=== PATIENT | female | born 1935 | race Caucasian/White ===

== ENCOUNTER 2017-02-19 17:22 | Observation (INO) | payer MEDICARE, OTHER ==
[~2017-02-19] VITALS: Ht 162.6 cm; Wt 73.3 kg
[2017-02-19] VITALS (12 sets, daily range): BP systolic 151–231; BP diastolic 81–157; PULSE 69–90; RESP 14–22; O2SAT 93–97
[~2017-02-19 17:22] MED LIST: ACET325T51 PO; ALBU2.5V4 IH; BISA10SU9 RC; BISA5TAB8 PO; CALC500T3 PO; CHOL200049 PO; COD28PAS TOP; CRAN400C PO; DIPH25CA6 PO; DOCU250C2 PO; FURO-129 PO; LOSA50TA37 PO; MAG770OR3 PO; MAGN400O4 PO; METO50TA3 PO; MULT1CAP33 PO; MYCC TOP; NA P133E23 RC; POLY17PO6 PO; POTA10CA42 PO; SENN8.6C6 PO; SODI51CR8 DT; TRAZ-115 PO; WARF2.5T82 PO; WARF3TAB PO; [UNRECOGNIZED DRUG - CODE] PO
[2017-02-19] MEDS ORDERED: 0.9% Sodium Chloride 1,000 ML IV ONE (17:31)
--- NOTE | 2017-02-19 17:33 | ED.REPORT ---
HPI-Stroke / CVA Feb 19, 2017 ED Provider: Calderon Farooq MD Pt is an 81 y/o female anticoagulated on Warfarin w/ a hx of prev R cerebellar CVA in 2012, HTN, HLD, severe dementia, PE, a-fib, stage IV lymphoma reportedly in remission presenting to the ED via EMS due to multiple stroke symptoms onset 6-8 hours ago. The patient was observed to be listing to the left, gazing to the right, with left-sided facial droop and left arm and leg weakness. She has also not been following commands properly. Further history unable to be obtained secondary to current condition. Nursing Notes Stated Complaint: STROKE Chief Complaint: Neuro Symptoms/ Deficits Nursing Notes Reviewed: Yes Allergies: Coded Allergies: Penicillins (Verified Allergy, Severe, Hives, 11/03/14) strawberry (Verified Allergy, Severe, hives, 11/03/14) Sulfa (Sulfonamide Antibiotics) (Verified Allergy, Unknown, 11/03/14) lisinopril (Verified Allergy, Unknown, 11/03/14) sulfamethoxazole (Verified Adverse Reaction, Intermediate, 11/03/14) trimethoprim (Verified Adverse Reaction, Intermediate, 11/03/14) Scheduled Ascorbate Calcium (Vitamin C) 500 Mg Tablet 500 MG PO DAILY (Reported) Calcium Carbonate (Tums) 500 Mg Tab.chew 1,000 MG PO TID (Reported) Cholecalciferol (Vitamin D3) (Vitamin D3) 2,000 Unit Capsule 2,000 UNIT PO DAILY (Reported) Cranberry (Cranberry) 400 Mg Capsule 400 MG PO BID (Reported) For UTI prpphylaxis Furosemide (Lasix) 20 Mg Tablet 20 MG PO DAILY Loratadine (Loratadine) 10 Mg Capsule 10 MG PO DAILY (Reported) Losartan Potassium (Losartan Potassium) 50 Mg Tablet 50 MG PO BID (Reported) Metoprolol Tartrate (Metoprolol Tartrate) 50 Mg Tablet 50 MG PO BID (Reported) Multivitamin (Multivitamins) 1 Each Capsule 1 EACH PO DAILY (Reported) Polyethylene Glycol 3350 (Miralax) 17 Gm Powd.pack 17 GM PO DAILY (Reported) Potassium Chloride (Potassium Chloride) 10 Meq Capsule.er 20 MEQ PO DAILY TAKE WITH FOOD Trazodone (Trazodone) 50 Mg Tablet 50 MG PO HS (Reported) Warfarin Sodium (Warfarin Sodium) 2.5 Mg Tablet 2.5 MG PO S, T, W, F (Reported) Warfarin Sodium (Coumadin) 3 Mg Tablet 3 MG PO M, Th, S (Reported) Scheduled PRN Acetaminophen (Acetaminophen) 325 Mg Tablet 650 MG PO Q4 PRN PRN For Pain ( Reported) If no relief from Bisacodyl tablet. Albuterol Neb Soln (Albuterol Neb Soln) 2.5 Mg/3 Ml Vial.neb 2.5 MG IH Q4-6H PRN PRN For Wheezing (Reported) Alprazolam (Alprazolam) 0.25 Mg Tablet 0.25 MG PO TID PRN PRN For Anxiety ( Reported) Bisacodyl (Dulcolax) 5 Mg Tablet.dr 10 MG PO DAILY PRN PRN For Constipation ( Reported) Bisacodyl (Dulcolax Rectal) 10 Mg Supp.rect 10 MG RC DAILY PRN PRN For Constipation (Reported) Cod Liver Oil/Zinc Oxide (Desitin Diaper Rash 40% Paste) 28 Gm Paste..g. 1 APPLIC TOP PRN PRN PRN For Itching (Reported) Use each time with diaper change Docusate Sodium (Docusate Sodium) 250 Mg Capsule 250 MG PO DAILY PRN PRN For Constipation (Reported) Mag Hydrox/Al Hydrox/Simeth (Mag-Al Liquid) 30 Ml Susp 30 ML PO QID PRN PRN For Dyspepsia or Heartburn (Reported) Na Phos,M-B/Na Phos,Di-Ba (Fleet Enema) 133 Ml Enema 133 ML RC Q3 days PRN PRN For Constipation (Reported) diphenhydrAMINE HCl (Benadryl) 25 Mg Capsule 25 MG PO Q6 PRN PRN For Itching ( Reported) General Time Seen by Provider: 17:34 Chief Complaint Weakness Left-sided Hx Obtained From: EMS Arrived By: Ambulance Time last known well About 09:30 Sudden in Onset?: No (unknown) Progression Since Onset: Unchanged Risk Factors tPA considered, but patient outside window. )( TPA Administration/Criteria Stroke Thrombolytic Therapy : TPA Considered: Yes TPA Administered Intravenously: No, not indicated Past Medical History Past Medical History 1. Hypertension. 2. Dyslipidemia. 3. Advanced dementia. 4. History of right cerebellar cerebrovascular accident in November of 2012. 5. Pulmonary embolism back in November 2012. 6. Atrial fibrillation, diagnosed in November 2012. 7. 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 Past Surgical History Status post ovarian cyst removal in 1972. Recent left hip intertrochanteric fracture in mid December of this year. Reports: Appendectomy Family History Reviewed, not relevant Smoking History Never Smoker Social History Alcohol Use: Denies alcohol use Drug Use: Denies drug use Review of Systems Unable to Obtain ROS Mental status Physical Exam Nursing note and vitals reviewed. Constitutional: Elderly female lying in bed. Not diaphoretic. Head: Normocephalic and atraumatic. Mouth/Throat: Oropharynx is clear and moist. No oropharyngeal exudate. Eyes: EOM are normal. Right pupil 4 mm and reactive to light, left pupil 2 mm and reactive to light Neck: Supple, no tracheal deviation. Cardiovascular: Normal rate, regular rhythm. Equal and intact distal pulses throughout. Trace peripheral edema Pulmonary/Chest: Effort normal and breath sounds normal. No respiratory distress. Abdominal: Soft. No distension. There is no tenderness, rebound, or guarding. Musculoskeletal: Trace peripheral edema. Neurological: She will grasp my wrist when I ask her to squeeze my hands equally. Will not follow any other commands. Withdraws to pain. Appears to have normal muscle tone with exception of contracture of left hand. Is awake. Making fist with right hand and moving right foot. Unable to assess visual elliott secondary to patient cooperation Left-sided facial droop present Unable or unwilling to hold R arm, L arm, R leg, L leg off bed Unable to assess ataxia Withdraws to pain on both right and left hands and feet Global aphasia with only very occasional single words spoken Unable to assess dysarthria Is favoring right side with some inattention to the left Skin: Warm and dry, no rashes or pallor appreciated. Psychiatric: Unable to assess Initial Vital Signs Vital Signs (First) Date Time Temp Pulse Resp B/P Pulse Ox O2 Delivery O2 Flow Rate FiO2 02/19/17 17:35 78 15 159/141 94 Room Air Initial VS: Reviewed, Vital signs abnormal Interpretation & Diagnostics Interpretation & Diagnostics: CTA head/neck: IMPRESSION: 1. No acute intracranial process. 2. Moderate to severe atrophy and chronic microvascular ischemic changes. 3. Mild prominence of the ventricular system in relation to gyral sulcal atrophy. This could represent a central atrophy pattern versus normal pressure hydrocephalus and clinical correlation is recommended. 4. No areas of acute hemodynamically significant stenosis, vascular occlusion or aneurysmal dilation within the anterior circulation. 5. No areas of hemodynamically significant stenosis, vascular occlusion or aneurysmal dilation within the posterior circulation. 6. No areas of hemodynamically significant stenosis, vascular occlusion or aneurysmal dilation within the neck vasculature. Dictated by: Olesya Lunsford M.D. on 02/19/2017 at 18:27 Approved by: Olesya Lunsford M.D. on 02/19/2017 at 18:36 Lab Results Interpretation Result Diagram: 02/21/17 0515 02/21/17 0515 Test 02/19/17 17:50 Activated Partial Thromboplast Time 37.2sec (22.8-33.0) Troponin T < 0.010ug/L (0.0-0.011) Hold Balderrama Top Tube Received (Received) CT Head Interpretation FINDINGS: Image quality: Excellent. CSF spaces: Basal cisterns are patent. No extra-axial fluid collections. The ventricles are enlarged and unchanged. Brain: No intracranial bleeds or masses. There is cerebral volume loss for age, with resultant ventricular and sulcal prominence. There are periventricular and deep white matter chronic small vessel ischemic changes. There is intracranial internal carotid artery atherosclerosis. Old right cerebellar ischemia. Old right lacunar focus of ischemia is noted in the external capsule. Skull and face: Calvarium and visualized facial bones appear intact, without suspicious lesions. Sinuses: Visualized sinuses and mastoids are clear. IMPRESSION: 1. No acute intracranial process. 2. Moderate to severe atrophy and chronic microvascular ischemic changes. 3. Ventricular system is prominent, out of proportion to gyral and sulcal atrophy. Findings may be related to more central atrophy pattern versus normal pressure hydrocephalus. Clinical correlation is recommended. The above findings were discussed with Dr. Calderon Farooq on 02/19/17 at 5:38 PM. This study fulfills neurological imaging criteria for inclusion or exclusion of acute stroke therapies based on available published neurological guidelines. Dictated by: Olesya Lunsford M.D. on 02/19/2017 at 17:38 Approved by: Olesya Lunsford M.D. on 02/19/2017 at 17:40 Study: Head CT no contrast Interpretation / Wet Read by: Interpret - Radiologist, Discussed w radiologist Re-Eval/Medical Decision Med Decision/Clinical Course In summary, 81-year-old female presenting to the ED for evaluation of acute onset of left-sided weakness and some altered mental status that started at approximately 9:30 AM today. Unable to obtain history from the patient secondary to her mental status. Unable to adequately perform NIH stroke scale as patient has dementia at baseline and is unable to cooperate with the exam; an estimate would be in excess of 30- please see neurologic exam above. Upon arrival to the ED, patient taken emergently to the CT scanner to evaluate for hemorrhagic stroke. This was negative. I contacted the [place] neurology stroke team as noted below; they did not feel that the patient would be a good candidate for TPA or other intervention at this time, primarily given time of onset as being greater than 4.5 hours from arrival. Laboratory studies notable for creatinine 1.19, negative troponin, white blood cell count 11.7 with 14.9% monocytes. INR 1.92. EKG reviewed, demonstrates sinus rhythm with a first-degree AV block, right bundle branch block and left anterior fascicular block. Initial head CT negative for acute hemorrhagic stroke. CT angio head and neck with moderate to severe atrophy and chronic microvascular ischemic changes, mild prominence of the ventricular system, no areas of acute hemodynamically significant stenosis, vascular occlusion, or aneurysmal dilation within the anterior, posterior, or neck circulation. Plan admission for further evaluation and management of this presumed CVA pending MRI and rest of stroke evaluation. Discussed at length with the patient 's . Consultation : Consulted With: Neurology Call Returned at: 17:48 Leach Cell Operator: Agrees with eval, Agrees with plan Note: Case discussed with [place] neurologists. Due to her not being a candidate for tPA or interventional radiology procedure, tele-stroke is not indicated. Counseled Regarding: Diagnosis, Lab results, Need for admission Patient Discharge & Departure Impression: Primary Impression: Acute CVA (cerebrovascular accident) Disposition: ADMITTED TO HOSPITAL Discharge Condition All VS Reviewed: Yes Condition: Stable Crit Care Except Billable Proc Time Spent: 75-104 minutes Services Performed: Patient management by me, Time spent at bedside, Reviewing test results, Reviewing imaging, Discussing patient care, Documentation in record Critical Care Notes: Please see VIET. Lyssaibnay Attestation Portions of this note were transcribed by Aguilar Coulter. I, Dr. Farooq personally performed the history, physical exam and medical decision-making; I reviewed and confirmed the accuracy of the information in the transcribed note. Signed by Alonso Urban, 02/19/17 - 1800 Calderon Farooq MD Feb 19, 2017 17:33 AGUILAR COULTER Feb 19, 2017 17:40 Dictated by: Olesya Lunsford M.D. on 02/19/2017 at 17:38 Approved by: Olesya Lunsford M.D. on 02/19/2017 at 17:40 Study: Head CT no contrast Interpretation / Wet Read by: Interpret - Radiologist, Discussed w radiologist Re-Eval/Medical Decision Consultation : Consulted With: Neurology Call Returned at: 17:48 Leach Cell Operator: Agrees with eval, Agrees with plan Note: Case discussed with [place] neurologists. Due to her not being a candidate for tPA or interventional radiology procedure, tele-stroke is not indicated. Counseled Regarding: Diagnosis, Lab results, Need for admission Patient Discharge & Departure Impression: Primary Impression: Acute CVA (cerebrovascular accident) Disposition: ADMITTED TO HOSPITAL Discharge Condition All VS Reviewed: Yes Condition: Stable Crit Care Except Billable Proc Time Spent: 75-104 minutes Services Performed: Patient management by me, Time spent at bedside, Reviewing test results, Reviewing imaging, Discussing patient care, Documentation in record Scribe Attestation Portions of this note were transcribed by Aguilar Coulter. I, Dr. Farooq personally performed the history, physical exam and medical decision-making; I reviewed and confirmed the accuracy of the information in the transcribed note. Signed by Alonso Urbna, 02/19/17 - 1799 Calderon Farooq MD Feb 19, 2017 17:33 AGUILAR COULTER Feb 19, 2017 17:40
--- NOTE | 2017-02-19 17:42 | DRSVH ---
PROCEDURE: CT BRAIN (TPA) ([id number]) INDICATIONS: Stroke TECHNIQUE: Noncontrast 4.5 mm thick angled axial sections acquired from the foramen magnum to the vertex, with c oronal reformats. COMPARISON: [facility], CT, BRAIN W/O CONTRAST, 12/04/2012, 15:14. FINDINGS: Image quality: Excellent. CSF spaces: Basal cisterns are patent. No extra-axial fluid collections. The ventricles are enlarg ed and unchanged. Brain: No intracranial bleeds or masses. There is cerebral volume loss for age, with resultant vent ricular and sulcal prominence. There are periventricular and deep white matter chronic small vessel ischemic changes. There is intracranial internal carotid artery atherosclerosis. Old right cerebell ar ischemia. Old right lacunar focus of ischemia is noted in the external capsule. Skull and face: Calvarium and visualized facial bones appear intact, without suspicious lesions. Sinuses: Visualized sinuses and mastoids are clear. IMPRESSION: 1. No acute intracranial process. 2. Moderate to severe atrophy and chronic microvascular ischemic changes. 3. Ventricular system is prominent, out of proportion to gyral and sulcal atrophy. Findings may be re lated to more central atrophy pattern versus normal pressure hydrocephalus. Clinical correlation is r ecommended. The above findings were discussed with Dr. Calderon Farooq on 02/19/17 at 5:38 PM. This study fulfills neurological imaging criteria for inclusion or exclusion of acute stroke therapie s based on available published neurological guidelines. Dictated by: Olesya Lunsford M.D. on 02/19/2017 at 17:38 Approved by: Olesya Lunsford M.D. on 02/19/2017 at 17:40
[2017-02-19 18:08] LABS: BASOPHILS % (AUTO) 0.8 % (0-3); MONOCYTES % (AUTO) 14.9 % (4-12); Mean Corpuscular Hemoglobin 28.2 pg (27.0-35.0); Mean Corpuscular Volume 88.5 fL (81-100); NEUTROPHILS % (AUTO) 59.3 % (40-74); Platelet Count 286 bil/L (150-400)
[2017-02-19 18:20] LABS: INR 1.92 ratio
[2017-02-19 18:27] LABS: TROPONIN T < 0.010 ug/L (0.0-0.011)
--- NOTE | 2017-02-19 18:38 | DRSVH ---
PROCEDURE: CT ANGIO BRAIN NECK TPA INDICATIONS: STAT READ - CALL ED PROVIDER W/RESULTS TECHNIQUE: Pre-contrast 4.5 mm thick sections acquired from the foramen magnum to the vertex. After the adminis tration of intravenous contrast, 1 mm thick sections acquired from the aortic arch through the [place] of [place]. Post-contrast 4.5 mm thick sections then re-acquired from the foramen magnum to the vert ex. 3-dimensional vrriysl-yckmeygpf-ygxtilxenr (MIP) and/or volume rendering reformats were acquired of the central intracranial vasculature and neck separately. For radiation dose reduction, the foll owing was used: automated exposure control, adjustment of mA and/or kV according to patient size. COMPARISON: [facility], CT, BRAIN (TPA), 02/19/2017, 17:33. [facility], MR, STROKE PROTOCOL (PNL), 12/02/2012, 12:11. FINDINGS: Image quality: Excellent. BRAIN: The ventricular system and cortical sulci demonstrate atrophy, consistent for the patient's stated ag e. There is a mild ventricular prominence, out of proportion to gyral and sulcal atrophy. There are a reas of hypodensity within the periventricular and subcortical white matter. There is no acute intra -or extra axial fluid collection. No acute hemorrhage, mass lesion or midline shift. Brainstem is unr emarkable. Globes are symmetrical. Sinuses are aerated. Osseous structures are intact. HEAD CT ANGIOGRAPHY: Anterior circulation: Intracranial internal carotid arteries are normal in size and flow. The flow within the paired anterior cerebral arteries is normal and symmetric. The flow within the middle cer ebral arteries is unchanged compared to prior exam. There is definitive visualization of the left mid dle cerebral artery through the M2 segment with prominent collateral vasculature distally. This is un changed compared to 12/02/12. The anterior communicating artery is seen. No aneurysms are seen. Posterior circulation: Visualized portions of the vertebral arteries demonstrate normal caliber, and join to form a normal appearing basilar artery. Flow within the posterior cerebral arteries is norm al and symmetric. No aneurysms are seen. NECK CT ANGIOGRAPHY: Carotid system: The great vessels demonstrate a bovine arch, consistent with variant anatomy as they arise from the aortic arch. The origins of the common carotid arteries appear patent. The common c arotid arteries demonstrate normal caliber and courses. The bifurcation regions are both widely flores nt. The internal carotid arteries demonstrate normal calibers and courses. Scattered calcifications are present along the distal aspect of the common carotid and proximal internal carotid arteries gary aterally without hemodynamically significant stenosis. Posterior circulation: The origins of the vertebral arteries both appear widely patent. The more ibrahim perior extracranial portions of both vertebral arteries also demonstrate normal courses and calibers. They join to form a normal appearing basilar artery. Soft tissues: Visualized neck soft tissues demonstrate no suspicious abnormalities. Bones: No suspicious bony lesions. Visualized cervical spine appears normally aligned. IMPRESSION: 1. No acute intracranial process. 2. Moderate to severe atrophy and chronic microvascular ischemic changes. 3. Mild prominence of the ventricular system in relation to gyral sulcal atrophy. This could represen t a central atrophy pattern versus normal pressure hydrocephalus and clinical correlation is recommen ded. 4. No areas of acute hemodynamically significant stenosis, vascular occlusion or aneurysmal dilation within the anterior circulation. 5. No areas of hemodynamically significant stenosis, vascular occlusion or aneurysmal dilation within the posterior circulation. 6. No areas of hemodynamically significant stenosis, vascular occlusion or aneurysmal dilation within the neck vasculature. Dictated by: Olesya Lunsford M.D. on 02/19/2017 at 18:27 Approved by: Olesya Lunsford M.D. on 02/19/2017 at 18:36
[2017-02-19] MEDS ORDERED: LORA10CA9 PO (18:41)
[2017-02-19] MEDS ORDERED: ALPR0.254 PO (18:45)
[2017-02-19] MEDS ORDERED: ASCO-294 PO (18:46)
[2017-02-19] MEDS ORDERED: BISA10SU61 RC (18:47)
[2017-02-19] MEDS ORDERED: BISA-67 PO (18:47)
[2017-02-19] MEDS ORDERED: CHOL200047 PO (18:48)
[2017-02-19] MEDS ORDERED: CALC500T9 PO (18:48)
[2017-02-19] MEDS ORDERED: [UNRECOGNIZED DRUG - CODE] PO (18:50)
[2017-02-19] MEDS ORDERED: Labetalol 5 mg/mL 20 mL Inj IV ONE (19:00)
[2017-02-19] MEDS ORDERED: Labetalol 5 mg/mL 4 mL Inj IVPUSH PRN (20:45)
[2017-02-19] MEDS ORDERED: Alum-Mag Hydrox-Simeth 30 mL Suspension PO PRN (20:45)
[2017-02-19] MEDS ORDERED: Polyethylene Glycol (PEG) 17 Gm Powder PO PRN (20:45)
[2017-02-19] MEDS ORDERED: Ondansetron 2 mg/mL 2 mL Inj IVPUSH PRN (20:45)
--- NOTE | 2017-02-19 21:13 | PCM.HPMED ---
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 History is obtained from the as the patient has severe dementia and is minimally conversive at baseline. Patient was noted around 9: 30 AM to slump to the left side in her wheelchair. This is atypical for her and was the same presenting symptoms as her prior stroke in 2012 except at that time was right-sided. also observed ptosis of the left eye, some slurred speech, and increased agitation. Attempts were made initially to help the patient sit upright in her chair but she continued to slump to the left. Per the she is wheelchair bound but is able to stand with assistance. She is unable to feed herself and has decreased right-sided strength from her prior CVA in 2012. In the ED vitals were temperature 36.6, pulse 81, respiratory rate 18, blood pressure 151/92, oxygen saturation of 93% on room air. Initial labs revealed a BUN of 28, creatinine of 1.19, PTT 20.8, INR 1.92, and unremarkable CBC. On arrival [facility] neurology was contacted CT brain was obtained revealing no acute intracranial process. Due to timing and comorbidities patient was not a candidate for TPA per [facility]. Review of Systems: Comprehensive review of systems was conducted with the patient and found to be negative except as noted above in HPI. Allergies Coded Allergies: Penicillins (Verified Allergy, Severe, Hives, 11/03/14) strawberry (Verified Allergy, Severe, hives, 11/03/14) Sulfa (Sulfonamide Antibiotics) (Verified Allergy, Unknown, 11/03/14) lisinopril (Verified Allergy, Unknown, 11/03/14) sulfamethoxazole (Verified Adverse Reaction, Intermediate, 11/03/14) trimethoprim (Verified Adverse Reaction, Intermediate, 11/03/14) Home Medications Vitamin C 500 mg daily Calcium carbonate 500 mg 3 times a day Vitamin D3 2000 units daily Cranberry 400 mg by mouth twice a day Docusate 250 mg daily as needed Furosemide 20 mg daily Loratadine 10 mg daily Losartan 50 mg twice a day Metoprolol 50 mg twice a day MiraLAX 17 g daily Potassium chloride 20 mEq daily Trazodone 50 mg nightly Warfarin 2.5 mg Monday Warfarin 3 mg Monday PMH Previous CVA in November 2012 Advanced dementia Hypertension Dyslipidemia PE in November 2012 A. fib on warfarin Stage IV a marginal zone lymphoma now in remission Surgical History Appendectomy Left hip intertrochanteric fracture ORIF Family History No known diabetes, heart disease, or cancers in the family Social History Hx Alcohol Use: No Hx Substance Use: No Hx Tobacco Use: No Smoking Status: Never Smoker Living Arrangement: Assisted Living ([facility]) Exam Vital Signs Vital Sign - Last Date Time Temp Pulse Resp B/P Pulse Ox O2 Delivery O2 Flow Rate FiO2 02/19/17 20:47 81 18 184/81 93 Room Air Exam General: Elderly lady in no acute distress. Lying asleep in bed. HEENT: Normocephalic, atraumatic. External ears without defect. Pupils equal, round, and reactive to light and accommodation. Anicteric sclerae, moist conjunctivae, ptosis of left eye, slight left-sided facial droop. Neck: Supple with full range of motion. No jugular venous distension. No bruits. No lymphadenopathy or thyromegaly. Cardiovascular: Regular rate and rhythm with 2/6 systolic murmur. Pulmonary: Clear to auscultation bilaterally with no crackles, wheezes, or rhonchi. Normal respiratory effort with no use of accessory muscles. Abdomen: Bowel tones present. Soft, nontender, nondistended. Extremities: No clubbing, cyanosis, edema, or lymphadenopathy appreciated. Onychomycoses of the toenails bilaterally. Skin: Normal temperature, turgor, and texture; no rash, ulcers, or subcutaneous nodules appreciated. Neurological: Neuro exam difficult to assess as patient does not follow commands consistently at baseline and she has remaining deficits from CVA in 2012. She does appear to have some decreased strength in her left upper extremity. Reflexes within normal limits. Patient does not ambulate at baseline. Psychiatric: Arousable but asleep during entire exam. Severe dementia. Lab and Diagnostics Result Diagram: 02/19/17 1750 02/19/17 1750 X-Rays, CTs and MRIs CT ANGIO BRAIN NECK TPA IMPRESSION: 1. No acute intracranial process. 2. Moderate to severe atrophy and chronic microvascular ischemic changes. 3. Mild prominence of the ventricular system in relation to gyral sulcal atrophy. This could represent a central atrophy pattern versus normal pressure hydrocephalus and clinical correlation is recommended. 4. No areas of acute hemodynamically significant stenosis, vascular occlusion or aneurysmal dilation within the anterior circulation. 5. No areas of hemodynamically significant stenosis, vascular occlusion or aneurysmal dilation within the posterior circulation. 6. No areas of hemodynamically significant stenosis, vascular occlusion or aneurysmal dilation within the neck vasculature. Dictated by: Olesya Lunsford M.D. on 02/19/2017 at 18:27 Approved by: Olesya Lunsford M.D. on 02/19/2017 at 18:36 CT BRAIN (TPA) ([id number]) IMPRESSION: 1. No acute intracranial process. 2. Moderate to severe atrophy and chronic microvascular ischemic changes. 3. Ventricular system is prominent, out of proportion to gyral and sulcal atrophy. Findings may be related to more central atrophy pattern versus normal pressure hydrocephalus. Clinical correlation is recommended. The above findings were discussed with Dr. Calderon Farooq on 02/19/17 at 5:38 PM. This study fulfills neurological imaging criteria for inclusion or exclusion of acute stroke therapies based on available published neurological guidelines. Dictated by: Olesya Lunsford M.D. on 02/19/2017 at 17:38 Approved by: Olesya Lunsford M.D. on 02/19/2017 at 17:40 12-lead ECG Sinus rhythm with heart rate of 85. Right bundle-branch block Assessment & Plan Nadiya Quintero is an 81-year-old female with past medical history significant for prior CVA in November 2012, paroxysmal atrial fibrillation on chronic anticoagulation, advanced dementia, lymphoma now in remission, and hypertension who presents from [facility] with left-sided weakness observed by and staff. Admitted for CVA workup. Possible CVA, present on admission, active. - Not a candidate for TPA due to timing and comorbidities. - Head CT without contrast showed no acute intracranial abnormalities. - CT brain and neck angiogram confirmed no acute intracranial process or areas of acute hemodynamically significant stenosis of the anterior circulation, posterior circulation, or neck vasculature. - Due to patient's dementia MRI is difficult and therefore will defer to Day team. - ABCD score was 6 (although difficult to assess deficits due to prior CVA and advanced dementia) - EKG showed normal sinus rhythm with right bundle branch block. Patient with a history of paroxysmal atrial fibrillation. - Echo with bubble study ordered. - No physical evidence for DVTs. May consider lower extremity ultrasound. - Allow for permissive hypertension to not treat unless SBP >220 or DBP >120 - Aspirin 325 mg given and continued daily. - Clopidogrel 75 mg daily. - Therapeutic on chronic anticoagulation with warfarin. - Lipid panel pending. Statin therapy held at this time. Further discussion with patient's before initiating therapy. - Speech and swallow evaluation pending. Possible acute kidney injury, present on admission, active. - Most recent labs to compare to her from 2015. BUN and creatinine baseline unknown. - does state patient has had some decrease in her oral intake over the last 2 days. - IV fluids at 100 mL per hour for 1 L. - Repeat BMP in the morning. - Day team to request records from [facility] recent BUN and creatinine levels. Hypertension, present on admission, chronic. - Home medications held to allow for permissive hypertension. - Home medication regimen includes: metoprolol tartrate 50 mg twice a day and losartan 50 mg twice a day. Advanced dementia, present on admission, chronic. - Patient resides at [facility] and is intermittently involved in patient's care. - Patient is nonambulatory, unable to feed herself, but able to stand with assist. - Trazodone 50 mg nightly. Paroxysmal atrial fibrillation, presently in remission, chronic. - Suspected to be the cause of her stroke in 2012. - On chronic anticoagulation with warfarin. - INR 1.92. - Continue warfarin per pharmacy. PRN Medications - Acetaminophen as needed for mild pain/fever/headache - Bowel regimen as needed - Antiemetic as needed Patient is admitted under observation status with expected length of stay less than 2 midnights due to severity of presenting symptoms, risk of adverse event, and complexity of treatment plan. Pain Evaluation: Adequate Pain Control GI Prophylaxis: Not indicated VTE Prophylaxis: Theraputic Anticoag with Warfarin VTE Mechanical Devices: Intermittant Pneumatic CD Resuscitation Status: DNR/DNI:Do Not Resuscitate/Intubate Attending Statement The patient was seen and examined together with Dr. Navas on 02/19 and I agree with the history, exam and plan as outlined in the note above. AN NAVAS DO Feb 19, 2017 21:13 Monster Garcia MD Feb 19, 2017 22:54
[2017-02-19 21:32] LABS: Magnesium 2.1 mg/dL (1.6-2.6)
[2017-02-19] MEDS ORDERED: 0.9% Sodium Chloride 1,000 ML IV SCH (22:15)
--- NOTE | 2017-02-19 22:38 | PCM.CONPHA ---
Subjective Date of Service: Feb 19, 2017 Left-sided weakness Objective Vital Signs Date Time Temp Pulse Resp B/P Pulse Ox O2 Delivery O2 Flow Rate FiO2 02/19/17 21:23 69 02/19/17 21:22 36.6 69 20 165/90 97 Room Air 02/19/17 20:47 81 18 184/81 93 Room Air 02/19/17 20:10 81 18 184/81 93 Room Air 02/19/17 19:45 81 18 151/92 93 Room Air 02/19/17 19:29 231/116 02/19/17 19:04 90 22 229/112 93 Room Air 02/19/17 18:30 89 22 189/133 94 Room Air 02/19/17 18:19 89 14 180/111 94 Room Air 02/19/17 18:00 79 20 171/157 93 Room Air 02/19/17 17:50 76 17 159/141 95 Room Air 02/19/17 17:35 78 15 159/141 94 Room Air Weight (Kilograms): 72.400 Height (Feet): 5 Height (Inches): 4.00 Test 02/19/17 17:50 02/19/17 21:19 White Blood Count 11.7th/mm3 (3.8-10.1) Red Blood Count 4.33mil/mm3 (3.90-5.20) Hemoglobin 12.2g/dL (12.0-15.6) Hematocrit 38.3% (35.0-46.0) Mean Corpuscular Volume 88.5fL (81-100) Mean Corpuscular Hemoglobin 28.2pg (27.0-35.0) Mean Corpuscular Hemoglobin Concent 31.9% (32.0-37.0) Red Cell Distribution Width 15.4% (12.3-15.4) Platelet Count 286bil/L (150-400) Neutrophils (%) (Auto) 59.3% (40-74) Lymphocytes (%) (Auto) 19.7% (14-46) Monocytes (%) (Auto) 14.9% (4-12) Eosinophils (%) (Auto) 5.0% (0-5) Basophils (%) (Auto) 0.8% (0-3) Prothrombin Time 20.8sec (8.1-12.5) Prothromb Time International Ratio 1.92ratio Activated Partial Thromboplast Time 37.2sec (22.8-33.0) Sodium Level 138mEq/L (134-144) Potassium Level 3.8mEq/L (3.5-5.2) Chloride Level 99mEq/L (97-108) Carbon Dioxide Level 23mmol/L (18-29) Blood Urea Nitrogen 28mg/dL (8-27) Creatinine 1.19mg/dL (0.57-1.00) Estimat Glomerular Filtration Rate 62mL/min (>59) Glucose Level 101mg/dL (60-99) Calcium Level 9.6mg/dL (8.5-10.1) Total Bilirubin 0.3mg/dL (0.0-1.2) Aspartate Amino Transf (AST/SGOT) 17U/L (0-50) Alanine Aminotransferase (ALT/SGPT) 12U/L (0-32) Alkaline Phosphatase 108U/L (25-165) Troponin T < 0.010ug/L (0.0-0.011) Total Protein 6.3g/dL (6.4-8.4) Albumin 3.6g/dL (3.4-5.0) Hold Balderrama Top Tube Received (Received) Magnesium Level 2.1mg/dL (1.6-2.6) Triglycerides Level 136mg/dL (0-149) Cholesterol Level 225mg/dL (100-199) LDL Cholesterol, Calculated 157.800mg/dL (0-99) VLDL Cholesterol 27.200mg/dL HDL Cholesterol 40mg/dL (>39) Cholesterol/HDL Ratio 5.63 (0.0-4.4) Assessment/Plan Assessment/Plan Warfarin management per pharmacy Indication: atrial fibrillation INR goal: 2-3 Home warfarin dose: 2.5 mg on 4 days per week, 3 mg on 3 days per week Pertinent info: - Patient admitted for ischemic stroke (also has previous hx of CVA) - INR today: 1.92 - Patient on ASA and to start Plavix 75 mg this evening. - HCT 38.3, Plt 286 Due to risk of hemorrhagic conversion of ischemic stroke, hold warfarin for 24 hours after stroke. Serial INRs have been ordered. Pharmacy to continue to monitor and dose warfarin. Thank you, Jamaica Brown Pharmacist Jamaica Brown Feb 19, 2017 22:37
--- NOTE | 2017-02-19 23:44 | NUR ---
Admit/Neuro VS Pt admitted to the floor. Lethargic and unable to open eyes. Noted left sided facial droop and slurred speech. Pt is dementia at baseline per spouse. RN swallow screen failed due to pt unable to follow instructions. CVA booklet provided to spouse.
[2017-02-20] VITALS (8 sets, daily range): BP systolic 121–229; BP diastolic 63–120; PULSE 53–110; RESP 16–22; O2SAT 94–98
[2017-02-20] MEDS ORDERED: Heparin 5,000 Unit/mL Inj SUBQ SCH (00:30)
[2017-02-20 06:07] LABS: INR 1.81 ratio
[2017-02-20] MEDS: Potassium Chloride 20 mEq SR Tablet PO SCH (08:00)
--- NOTE | 2017-02-20 08:00 | PCM.PNMED ---
Subjective Date of Service Feb 20, 2017 Subjective Pt remains significantly impaired. recounts previous event, unsure at this time if there is any impairment from previous baseline. Exam Vital Signs Vital Sign - Last Date Time Temp Pulse Resp B/P Pulse Ox O2 Delivery O2 Flow Rate FiO2 02/20/17 04:39 36.5 53 18 180/79 98 Room Air Intake and Output 02/19/17 02/19/17 02/20/17 Cumulative From/Thru 15:00 23:00 07:00 02/19/17 17:35 - 02/20/17 06:59 Intake Total 759 ml 759 ml Balance 759 ml 759 ml Intake Oral 0 ml 0 ml IV Total 759 ml 759 ml # Voids 1 1 # Bowel Movements 0 0 General: Other (Sleeping but arousable, not distrubed extensively for this examination) Mouth: Mucous Membr Moist/[place] Chest & Lungs: Chest Wall Normal Cardiovascular: Other (Regular rate with irregular rhythm on exam. NO murmurs) Extremities: No cyanosis/clubbing/edma bilat Neurological: Other (significant neuroligc deficits noted even without complete examination this morning due to pt fatigue. (+)extremty contracture, global weakness noted. ) IVs and Medications Medications Reviewed: Medications were reviewed in detail Lab and Diagnostics Result Diagram: 02/19/17174902/19/171749 X-Rays, CTs and MRIs CT ANGIO BRAIN NECK TPA IMPRESSION: 1. No acute intracranial process. 2. Moderate to severe atrophy and chronic microvascular ischemic changes. 3. Mild prominence of the ventricular system in relation to gyral sulcal atrophy. This could represent a central atrophy pattern versus normal pressure hydrocephalus and clinical correlation is recommended. 4. No areas of acute hemodynamically significant stenosis, vascular occlusion or aneurysmal dilation within the anterior circulation. 5. No areas of hemodynamically significant stenosis, vascular occlusion or aneurysmal dilation within the posterior circulation. 6. No areas of hemodynamically significant stenosis, vascular occlusion or aneurysmal dilation within the neck vasculature. Dictated by: Olesya Lunsford M.D. on 02/19/2017 at 18:27 Approved by: Olesya Lunsford M.D. on 02/19/2017 at 18:36 CT BRAIN (TPA) ([id number]) IMPRESSION: 1. No acute intracranial process. 2. Moderate to severe atrophy and chronic microvascular ischemic changes. 3. Ventricular system is prominent, out of proportion to gyral and sulcal atrophy. Findings may be related to more central atrophy pattern versus normal pressure hydrocephalus. Clinical correlation is recommended. The above findings were discussed with Dr. Calderon Farooq on 02/19/17 at 5:38 PM. This study fulfills neurological imaging criteria for inclusion or exclusion of acute stroke therapies based on available published neurological guidelines. Dictated by: Olesya Lunsford M.D. on 02/19/2017 at 17:38 Approved by: Olesya Lunsford M.D. on 02/19/2017 at 17:40 12-lead ECG Sinus rhythm with heart rate of 85. Right bundle-branch block Assessment & Plan Nadiya Quintero is an 81-year-old female with past medical history significant for prior CVA in November 2012, paroxysmal atrial fibrillation on chronic anticoagulation, advanced dementia, lymphoma now in remission, and hypertension who presents from [facility] with left-sided weakness observed by and staff. Admitted for CVA workup. Possible CVA, present on admission, active. - Not a candidate for TPA due to timing and comorbidities. - Head CT without contrast showed no acute intracranial abnormalities. - CT brain and neck angiogram confirmed no acute intracranial process or areas of acute hemodynamically significant stenosis of the anterior circulation, posterior circulation, or neck vasculature. - Due to patient's dementia MRI is difficult, feels this will caus ea signifcant amoutn of stress / anxiety for patient, and given pmhx of known CVA in setting of AFib, results unlikely to alter treatment course. - ABCD score was 6 (although difficult to assess deficits due to prior CVA and advanced dementia) - EKG showed normal sinus rhythm with right bundle branch block. Patient with a history of paroxysmal atrial fibrillation. - Echo with bubble study ordered and pending. - No physical evidence for DVTs. May consider lower extremity ultrasound. - Allow for permissive hypertension to not treat unless SBP >220 or DBP >120 - Aspirin 325 mg given and Clopidogrel 75 mg continued, however in the setting of sub-therpaeutic INR, this medications will be reconsidered once warfarin dosing can achieve a therapeutic level. - Statin therapy held at this time given comorbid conditions. Further discussion with patient's before initiating therapy. - Speech and swallow evaluation pending, may need to consider alterative route for medication administration Possible acute kidney injury, present on admission, active. - Most recent labs to compare to her from 2015. BUN and creatinine baseline unknown. - does state patient has had some decrease in her oral intake over the last 2 days. - IV fluids at 100 mL per hour for 1 L, now DC'd. - Repeat BMP in the morning is pending - Records release from [facility] recent BUN and creatinine levels pending. Hypertension, present on admission, chronic. - Home medications held to allow for permissive hypertension. - Home medication regimen includes: metoprolol tartrate 50 mg twice a day and losartan 50 mg twice a day. - Will consider restart tomorrow if BP stable follow speech eval. Advanced dementia, present on admission, chronic. - Patient resides at [facility] and is intermittently involved in patient's care. - Patient is nonambulatory, unable to feed herself, but able to stand with assist. - Trazodone 50 mg nightly. Paroxysmal atrial fibrillation, presently in remission, chronic. - Suspected to be the cause of her stroke in 2012. - On chronic anticoagulation with warfarin. - INR 1.92. - Continue warfarin per pharmacy. Hospice will consult on this patient and discuss plans for disposition with . Pain Evaluation: Adequate Pain Control GI Prophylaxis: Not indicated VTE Prophylaxis: Theraputic Anticoag with Warfarin VTE Mechanical Devices: Intermittant Pneumatic CD Resuscitation Status: DNR/DNI:Do Not Resuscitate/Intubate Time spent 35 minutes Florentino Wilson DO Feb 20, 2017 08:00 Florentino Wilson DO Feb 20, 2017 08:00
[2017-02-20] MEDS: Polyethylene Glycol (PEG) 17 Gm Powder PO SCH (08:19)
[2017-02-20] MEDS ORDERED: CRANBERRY 400 MG PO SCH (08:30)
--- NOTE | 2017-02-20 09:07 | NUR ---
limited intervention pt's is requesting limited intervention for his . He states that the more changes to her normal routine the more it will "set her off". pt is sleeping and is NPO, this RN will wake pt later for assessment.
--- NOTE | 2017-02-20 10:43 | NUR ---
sleeping pt has been sleeping all shift, laying on her left side, in the position. states the he is the medical DPOA and asks that this RN not disturb her sleep because that is what he states she needs the most. He is concerned that she will become upset with new faces and routines. Waiting for pt to wake, then this RN will attempt assessment.
--- NOTE | 2017-02-20 11:10 | NUR ---
DIRECTOR OF RESEARCH consultation received. Pt was somnolent. Pt's politely declined evaluation and stated that he hoped that his 's condition would be improved when she awakens. He also stated that if his 's condition did not improve, then he felt that [facility] staff could decide how to move forward with swallowing safety/plan. DIRECTOR OF RESEARCH will d/c from caseload. Please reorder if needed.
--- NOTE | 2017-02-20 11:16 | NUR ---
NUTRITION ASSESSMENT: ASSESS: 81YO F admit with possible CVA, ECHO pending. Pt with h/o CVA and nonambulatory, unable to feed self. ST eval pending. Appears pt/ desires limited intervention, possible palliative consult. PMHX: Severe dementia,CVA,Stg IV lymphoma in remission, PE, Afib DIET: NPO (ST eval pending) LABS: Alb 3.6, Glu 102 MEDS: Reviewed GI: No BM WEIGHT: 72.4kg BMI: 27.4 EST.NEEDS: 5025-3592 kcal, 70-90g pro (25-30kcal/kg;1.0-1.2g/kg pro) NUTRITION DIAGNOSIS: (1) Chew/swallowing difficulty related to h/o CVA as evidenced by reported inability to feed self and previous CVA with defects, ST eval pending. INTERVENTION: (1) Diet per ST (2) Supplements pending po intake. MONITOR/EVALUATE: Diet advancement, tolerance, POC. F/U per moderate risk.
--- NOTE | 2017-02-20 12:03 | NUR ---
Case Management: DAVID given and explained to pt's . Sanjuanita MADDEN,RN
--- NOTE | 2017-02-20 15:47 | PCM.PHAPRO ---
Progress Left-sided weakness Date Feb 20-Feb INR 1.92 1.81 INR change -0.11 Warf Dose HOLD 3 Reinaldo Rosen Pharm.D Feb 20, 2017 15:47
--- NOTE | 2017-02-20 15:48 | NUR ---
Social Work Note - Initial Assessment Nadiya Quintero is a 81 yr old admitted for CVA. EMR reviewed: Pt has Medicare and [employer] Supplement. Pt's PCP is Dr Coreas. Readmit score is not available. DPOA paperwork in EMR. See attached CM initial assessment. BEEF CATTLE GRAZIER met with pt and Pt's . Introduced D/C planning and explained SW role. Pt has advanced dementia. She has been living in [facility] where she has been receiving total care. She is wheelchair and bed bound at baseline. She is not able to feed herself. Pt had symptoms of a CVA today - Pt's states that he does not want her to suffer through evaluation and treatment - has declined MRI. states that he wants her comfortable. He would like to talk with his PCP about her opinion about hospice but admits that Dr Coreas has discussed Hospice with him frequently over the past year. BEEF CATTLE GRAZIER spoke with hospice of the - [facility] is able to do an informational visit Tomorrow 02/21 at 9:30. BEEF CATTLE GRAZIER updated family who will be at the hospital. Plan: Likely return to [facility] - Hospice informational visit tomorrow. DONNA Castro Addendum: 02/20/17 at 1603 by SMITH WATTS SS Amended: Links added.
--- NOTE | 2017-02-20 16:11 | NUR ---
Evaluation completed. Please go to "Notes" then click on "Assessments and Notes" (bottom left corner of screen). Then select appropriate discipline tab on top of screen.
[2017-02-21] VITALS (7 sets, daily range): BP systolic 99–129; BP diastolic 58–78; PULSE 58–86; RESP 16–22; O2SAT 92–96
--- NOTE | 2017-02-21 05:25 | NUR ---
NOC Activity Pt could be conversational at times but is confused. Left sided facial droop and mild slurring speech observed. No s/sx of chest pain, sob, n/v or abd discomfort observed. Afebrile overnight. Pt has slept most of the night.
[2017-02-21 06:10] LABS: INR 1.74 ratio
[2017-02-21] MEDS: Potassium Chloride 20 mEq SR Tablet PO SCH (08:25)
[2017-02-21] MEDS: Polyethylene Glycol (PEG) 17 Gm Powder PO SCH (08:26)
[2017-02-21] MEDS: cefTRIAXone Inj 1,000 MG in Dextrose 5% Minibag Plus 50 ML IV SCH (10:39)
--- NOTE | 2017-02-21 10:46 | PCM.PHAPRO ---
Progress Date of Service: Feb 21, 2017 Warfarin dosing Date Feb 20-Feb 21-Feb INR 1.92 1.81 1.74 INR change -0.11 -0.07 Warf Dose HOLD 3 3mg Viki Chen PharmD Feb 21, 2017 10:46
--- NOTE | 2017-02-21 11:45 | PCM.PNMED ---
Subjective Date of Service Feb 21, 2017 Subjective Patient remains very fatigued but is arousable times. No other acute complaints at this time from patient, has been at bedside consistently and looking forward to palliative care meeting later today to discuss possible options. Exam Vital Signs Vital Sign - Last Date Time Temp Pulse Resp B/P Pulse Ox O2 Delivery O2 Flow Rate FiO2 02/21/17 10:59 61 02/21/17 09:54 36.4 16 101/58 96 Room Air Intake and Output 02/20/17 02/20/17 02/21/17 Cumulative From/Thru 15:00 23:00 07:00 02/19/17 17:35 - 02/21/17 06:56 Intake Total 244 ml 200 ml 20 ml 1223 ml Balance 244 ml 200 ml 20 ml 1223 ml Intake Oral 200 ml 0 ml 200 ml IV Total 244 ml 20 ml 1023 ml # Voids 3 1 5 # Bowel Movements 1 0 1 General: Alert, Mild Distress, Other (lying in bed, no acute distress. ) Neurological: Other (stable neurologic deficits, unchanged since preivousl. (+ ) facial asymetry with unequal pupillary reflex. ) IVs and Medications Medications Reviewed: Medications were reviewed in detail Lab and Diagnostics Result Diagram: 02/19/17 1750 02/20/17 0803 X-Rays, CTs and MRIs CT ANGIO BRAIN NECK TPA IMPRESSION: 1. No acute intracranial process. 2. Moderate to severe atrophy and chronic microvascular ischemic changes. 3. Mild prominence of the ventricular system in relation to gyral sulcal atrophy. This could represent a central atrophy pattern versus normal pressure hydrocephalus and clinical correlation is recommended. 4. No areas of acute hemodynamically significant stenosis, vascular occlusion or aneurysmal dilation within the anterior circulation. 5. No areas of hemodynamically significant stenosis, vascular occlusion or aneurysmal dilation within the posterior circulation. 6. No areas of hemodynamically significant stenosis, vascular occlusion or aneurysmal dilation within the neck vasculature. Dictated by: Olesya Lunsford M.D. on 02/19/2017 at 18:27 Approved by: Olesya Lunsford M.D. on 02/19/2017 at 18:36 CT BRAIN (TPA) ([id number]) IMPRESSION: 1. No acute intracranial process. 2. Moderate to severe atrophy and chronic microvascular ischemic changes. 3. Ventricular system is prominent, out of proportion to gyral and sulcal atrophy. Findings may be related to more central atrophy pattern versus normal pressure hydrocephalus. Clinical correlation is recommended. The above findings were discussed with Dr. Calderon Farooq on 02/19/17 at 5:38 PM. This study fulfills neurological imaging criteria for inclusion or exclusion of acute stroke therapies based on available published neurological guidelines. Dictated by: Olesya Lunsford M.D. on 02/19/2017 at 17:38 Approved by: Olesya Lunsford M.D. on 02/19/2017 at 17:40 12-lead ECG Sinus rhythm with heart rate of 85. Right bundle-branch block Assessment & Plan Nadiya Quintero is an 81-year-old female with past medical history significant for prior CVA in November 2012, paroxysmal atrial fibrillation on chronic anticoagulation, advanced dementia, lymphoma now in remission, and hypertension who presents from [facility] with left-sided weakness observed by and staff. Admitted for CVA workup. Possible CVA, present on admission, active. - Not a candidate for TPA due to timing and comorbidities. - Head CT without contrast showed no acute intracranial abnormalities. - CT brain and neck angiogram confirmed no acute intracranial process or areas of acute hemodynamically significant stenosis of the anterior circulation, posterior circulation, or neck vasculature. - Due to patient's dementia MRI is difficult, feels this will cause a significant amount of stress / anxiety for patient, and given pmhx of known CVA in setting of AFib, results unlikely to alter treatment course. Discussed extensively with and this study was declined. - ABCD score was 6 (although difficult to assess deficits due to prior CVA and advanced dementia) - EKG showed normal sinus rhythm with right bundle branch block. Patient with a history of paroxysmal atrial fibrillation. - Echo with bubble study ordered and pending, differed yesterday due to patient discomfort, but now considered for later today. - No physical evidence for DVTs. May consider lower extremity ultrasound. - Allow for permissive hypertension to not treat unless SBP >220 or DBP >120 - Aspirin 325 mg given and Clopidogrel 75 mg initially started, now held as warfarin therapy titrated - Statin therapy held at this time given comorbid conditions. Further discussion with patient's before initiating therapy. - Speech and swallow evaluation conducted, diet as per recommendations - Hospice consult is scheduled later today to discuss further planning, consideration continued intervention, and possibility of transition to hospice care. Possible acute kidney injury, present on admission, active. - Most recent labs to compare to her from 2015. BUN and creatinine baseline unknown. - does state patient has had some decrease in her oral intake over the last 2 days. - IV fluids at 100 mL per hour for 1 L, now DC'd. - At [facility]'s request of minimal interventions, no serum studies ordered yesterday, will obtain labs today as nutritional studies also required and ordered. - Records release from [facility] recent BUN and creatinine levels pending. Acute Cystitis: - Diagnosed initially treated with Keflex one day prior to admission with stroke - Continued on Rocephin at this time, pending urine culture studies and sensitivity. Hypertension, present on admission, chronic. - Home medications held to allow for permissive hypertension. - Home medication regimen includes: metoprolol tartrate 50 mg twice a day and losartan 50 mg twice a day. - Woudl consider restarting with stabilization of BP, however currently pressures low normal, so will continue to hold. Advanced dementia, present on admission, chronic. - Patient resides at [facility] and is intermittently involved in patient's care. - Patient is nonambulatory, unable to feed herself, but able to stand with assist. - Trazodone 50 mg nightly. Paroxysmal atrial fibrillation, presently in remission, chronic. - Suspected to be the cause of her stroke in 2012. - On chronic anticoagulation with warfarin. - INR 1.92. - Continue warfarin per pharmacy. Hospice will consult on this patient and discuss plans for disposition with , scheduled for this morning. Pain Evaluation: Adequate Pain Control GI Prophylaxis: Not indicated VTE Prophylaxis: Theraputic Anticoag with Warfarin VTE Mechanical Devices: Intermittant Pneumatic CD Resuscitation Status: DNR/DNI:Do Not Resuscitate/Intubate Time spent 30 minutes Florentino Wilson DO Feb 21, 2017 11:45
[2017-02-21 11:57] LABS: BASOPHILS % (AUTO) 0.4 % (0-3); EOSINOPHILS % (AUTO) 9.2 % (0-5); MONOCYTES % (AUTO) 13.6 % (4-12); Mean Corpuscular Volume 88.6 fL (81-100); NEUTROPHILS % (AUTO) 58.7 % (40-74); Platelet Count 331 bil/L (150-400)
[2017-02-21] MEDS ORDERED: 0.9% Sodium Chloride 250 ML ONE (15:11)
--- NOTE | 2017-02-21 15:50 | NUR ---
Pt was somnolent and did not awaken with repositioning or auditory stimuli. Discussed case with pt's , who stated that he signed hospice paperwork this morning. Pt's expressed his desire for his to eat and drink safely, based on recommendations. BED PLACEMENT COORDINATOR will continue to follow and advance as tolerated.
--- NOTE | 2017-02-21 16:37 | DRSVH ---
[facility] [address] [place] [address] Echocardiogram Report Name: BELINDA ALONZO Date: 02/21/2017 Height: 64 in Hospital Exam Location: [facility] Weight: 160 lb Gender: Female BSA: 1.8 m2 : 1935 Age: 81 yrs BP: 112/67 mm Hg Reason For Study: CVA Ordering Physician: Chris Piper Performed By: Servando Cortes Referring Physician: AN NAVAS Interpretation Summary Moderate concentric left ventricular hypertrophy with ejection fraction 70- 75%. Grade I diastolic dysfunction. Moderate mitral annular calcification. Mild tricuspid regurgitation. Mildly enlarged ascending aorta. Intravascular volume depletion. Comparison is made with the echocardiogram of 11/09/14, Intravascular volume depletion is new. Procedure: A two-dimensional transthoracic echocardiogram with color flow and Doppler was performed. A saline contrast injection was performed to assess for cardiac shunting. The study quality was technically difficult. Comparison is made with the echocardiogram of 11/09/14. The patient was in normal sinus rhythm during the exam. Left Ventricle: The left ventricular cavity is small. There is moderate concentric left ventricular hypertrophy. The ejection fraction is estimated to be 70-75%. There are no focal wall motion abnormalities. Assessment of diastolic parameters indicates a relaxation abnormality of the left ventricle, consistent with normal filling pressures. Right Ventricle: The right ventricle is normal in size, thickness and function. Atria: The left atrium grossly appears normal in size. The right atrium is normal in size. The interatrial septum is intact with no evidence for an atrial septal defect. Mitral Valve: The mitral valve leaflets are slightly calcified. There is moderate mitral annular calcification. There is no mitral regurgitation noted. Aortic Valve: The aortic valve is grossly normal. No aortic regurgitation is present. Tricuspid Valve: The tricuspid valve is not well visualized, but is grossly normal. There is mild tricuspid regurgitation. Pulmonic Valve: The pulmonic valve is not well visualized. There is no pulmonic valvular regurgitation. Great Vessels: The aortic root is normal size. The ascending aorta is mildly enlarged. The pulmonary artery is normal size. The IVC is of normal diameter and collapses greater than 50% with a sniff. This suggests a low right atrial pressure of 3 mm Hg. Pericardium/ Pleura There is no pericardial effusion. There is no pleural effusion. MMode/2D Measurements & Calculations LVIDd: 3.4 cm RA long axis LVOT diam LVIDs: 1.5 cm LA A4 area: 15.3 cm FS: 54.7 % LA length (vol): 4.2 cm RA area Ao root diam IVSd: 1.2 cm LVPWd: 1.3 cm : 11.7 cm asc Aorta RA vol: 25.4 mlDiam: 3.4 cm RA : 14.3 mm2 LV jamison. diameter/BSA LV sys. diameter/BSA (cm/m^2): 1.9 (cm/m^2): 0.85 Doppler Measurements & Calculations Ao V2 max MV E max milton MV E/A: 0.55 TR max milton : 164.8 cm/sec : 60.8 cm/sec Med Peak E' Milton : 202.3 cm/sec Ao max P.9 mmHg MV A max milton TR max PG Ao mean P.8 mmHg : 111.5 cm/sec E/E' med: 14.1 : 16.4 mmHg LVOT Max Milton Lat Peak E' Milton PA V2 max : 128.9 cm/sec : 135.4 cm/sec YOLA(I,D): 2.3 cm E/E' lat: 12.3 PA mean PG sev ratio: 0.72 E/e' average : 4.3 mmHg MV dec time: 0.26 sec Ao V2 mean LV V1 max PG PA V2 mean : 116.3 cm/sec : 99.9 cm/sec Ao V2 VTI: 29.0 cmLV V1 VTI PA pr(Accel) YOLA(V,D): 2.5 cm2 : 20.8 cm : 34.1 mmHg YOLA indexed to BSA (cm^2/m^2): 1.3 Electronically signed by: Merle Crain on Reading Physician:02/21/2017 04:36 PM
--- NOTE | 2017-02-21 18:21 | NUR ---
Activity and mentation Roberto Carlos score 10 and instituted PU Protocol with [id number] and elevating heels. Intermittent wakefulness and yes/no answers when responsive. Mouth care provided. assisting with meals and remains at bedside throughout shift.
[2017-02-22] MEDS ORDERED: 0.9% Sodium Chloride 250 ML ONE (03:08)
[2017-02-22 05:20] VITALS: BP 121/71; PULSE 73; RESP 18; O2SAT 93
[2017-02-22 07:40] LABS: INR 2.56 ratio
[2017-02-22] MEDS: Potassium Chloride 20 mEq SR Tablet PO SCH (08:12)
[2017-02-22] MEDS: Polyethylene Glycol (PEG) 17 Gm Powder PO SCH (08:13)
[2017-02-22] MEDS: cefTRIAXone Inj 1,000 MG in Dextrose 5% Minibag Plus 50 ML IV SCH (08:19)
--- NOTE | 2017-02-22 11:43 | PCM.DC.MED ---
Discharge Summary Date of Service Feb 22, 2017 Dates of Hospitalization Date of Hospital Admission Feb 19, 2017 at 20:44 Date of Discharge: Feb 22, 2017 Providers: Admitting Physician: Monster Garcia MD Primary Care Physician: Luly Coreas MD Attending Physician: Florentino Wilson DO Diagnosis at Time of Discharge Diagnosis at Time of Discharge Recurrent CVA Dementia, severe Consultations Hospice Procedures XRay, CTs & MRIs CT ANGIO BRAIN NECK TPA IMPRESSION: 1. No acute intracranial process. 2. Moderate to severe atrophy and chronic microvascular ischemic changes. 3. Mild prominence of the ventricular system in relation to gyral sulcal atrophy. This could represent a central atrophy pattern versus normal pressure hydrocephalus and clinical correlation is recommended. 4. No areas of acute hemodynamically significant stenosis, vascular occlusion or aneurysmal dilation within the anterior circulation. 5. No areas of hemodynamically significant stenosis, vascular occlusion or aneurysmal dilation within the posterior circulation. 6. No areas of hemodynamically significant stenosis, vascular occlusion or aneurysmal dilation within the neck vasculature. Dictated by: Olesya Lunsford M.D. on 02/19/2017 at 18:27 Approved by: Olesya Lunsford M.D. on 02/19/2017 at 18:36 CT BRAIN (TPA) ([id number]) IMPRESSION: 1. No acute intracranial process. 2. Moderate to severe atrophy and chronic microvascular ischemic changes. 3. Ventricular system is prominent, out of proportion to gyral and sulcal atrophy. Findings may be related to more central atrophy pattern versus normal pressure hydrocephalus. Clinical correlation is recommended. The above findings were discussed with Dr. Calderon Farooq on 02/19/17 at 5:38 PM. This study fulfills neurological imaging criteria for inclusion or exclusion of acute stroke therapies based on available published neurological guidelines. Dictated by: Olesya Lunsford M.D. on 02/19/2017 at 17:38 Approved by: Olesya Lunsford M.D. on 02/19/2017 at 17:40 ECG 12 Lead Sinus rhythm with heart rate of 85. Right bundle-branch block Brief History As per HPI by admitting physician, "Nadiya Quintero is an 81-year-old female with past medical history significant for prior CVA in November 2012, paroxysmal atrial fibrillation on chronic anticoagulation, advanced dementia, lymphoma now in remission, and hypertension who presents from [facility] with left-sided weakness observed by and staff. History is obtained from the as the patient has severe dementia and is minimally conversive at baseline. Patient was noted around 9:30 AM to slump to the left side in her wheelchair. This is atypical for her and was the same presenting symptoms as her prior stroke in 2013 except at that time was right-sided. also observed ptosis of the left eye, some slurred speech, and increased agitation. Attempts were made initially to help the patient sit upright in her chair but she continued to slump to the left. Per the she is wheelchair bound but is able to stand with assistance. She is unable to feed herself and has decreased right-sided strength from her prior CVA in 2013. In the ED vitals were temperature 36.6, pulse 81, respiratory rate 18, blood pressure 151/92, oxygen saturation of 93% on room air. Initial labs revealed a BUN of 28, creatinine of 1.19, PTT 20.8, INR 1.92, and unremarkable CBC. On arrival [place] [facility]y was contacted CT brain was obtained revealing no acute intracranial process. Due to timing and comorbidities patient was not a candidate for TPA per [place]." Hospital Course Possible CVA, present on admission, active. - Not a candidate for TPA due to timing and comorbidities. - Head CT without contrast showed no acute intracranial abnormalities. - CT brain and neck angiogram confirmed no acute intracranial process or areas of acute hemodynamically significant stenosis of the anterior circulation, posterior circulation, or neck vasculature. - Due to patient's dementia MRI is difficult, feels this will cause a significant amount of stress / anxiety for patient, and given pmhx of known CVA in setting of AFib, results unlikely to alter treatment course. Discussed extensively with and this study was declined. - ABCD score was 6 (although difficult to assess deficits due to prior CVA and advanced dementia) - EKG showed normal sinus rhythm with right bundle branch block. Patient with a history of paroxysmal atrial fibrillation. - Echo with bubble study ordered and pending, differed yesterday due to patient discomfort, but now considered for later today. - No physical evidence for DVTs. May consider lower extremity ultrasound. - Allow for permissive hypertension to not treat unless SBP >220 or DBP >120 - Aspirin 325 mg given and Clopidogrel 75 mg initially started, now held as warfarin therapy titrated - Statin therapy held at this time given comorbid conditions. Further discussion with patient's before initiating therapy. - Speech and swallow evaluation conducted, diet as per recommendations. 1-to-1 supervised/stim feeding recommended. Hospice consulted, following discussion with agreed with plan to return to assisted living facility on hospice care rather than pursue further invasive evaluation or intervention. Possible acute kidney injury, present on admission, active. - Most recent labs to compare to her from 2015. BUN and creatinine baseline unknown. - does state patient has had some decrease in her oral intake over the last 2 days. - IV fluids at 100 mL per hour for 1 L, now DC'd. - At 's request of minimal interventions, no serum studies ordered yesterday, will obtain labs today as nutritional studies also required and ordered. - Likely related to dehydration, will push oral fluids as possible, however no further trending of these values are planned as not additional intervention considered. Acute Cystitis: - Diagnosed initially treated with Keflex one day prior to admission with stroke - Pt provided what is now 3rd day of antibiotic therapy. Likely sufficient to cover simple UTI, not continued on discharge. Hypertension, present on admission, chronic. - Home medications held to allow for permissive hypertension. - Home medication regimen includes: metoprolol tartrate 50 mg twice a day and losartan 50 mg twice a day. - Would consider restarting with stabilization of BP, however currently pressures low normal, so will continue to hold on discharge. Advanced dementia, present on admission, chronic. - Patient resides at and is intermittently involved in patient's care. - Patient is nonambulatory, unable to feed herself, but able to stand with assist. - Trazodone 50 mg nightly. Paroxysmal atrial fibrillation, presently in remission, chronic. - Suspected to be the cause of her stroke in 2012. - On chronic anticoagulation with warfarin. - INR 1.92. - Continue warfarin per pharmacy. Exam Vital Signs (Last) Date Time Temp Pulse Resp B/P Pulse Ox O2 Delivery O2 Flow Rate FiO2 02/22/17 05:20 36.9 73 18 121/71 93 Room Air Exam General: Alert, Mild Distress, lying in bed, no acute distress. Neurological: Stable neurologic deficits, unchanged since previous. (+) facial asymmetry with unequal pupillary reflex. Test 02/19/17 17:50 02/19/17 21:19 02/21/17 05:15 02/22/17 06:05 Activated Partial Thromboplast Time 37.2sec (22.8-33.0) Troponin T < 0.010ug/L (0.0-0.011) Hold Balderrama Top Tube Received (Received) Hemoglobin A1c 6.1% (4.8-5.6) Magnesium Level 2.1mg/dL (1.6-2.6) Triglycerides Level 136mg/dL (0-149) Cholesterol Level 225mg/dL (100-199) LDL Cholesterol, Calculated 157.800mg/dL (0-99) VLDL Cholesterol 27.200mg/dL HDL Cholesterol 40mg/dL (>39) Cholesterol/HDL Ratio 5.63 (0.0-4.4) White Blood Count 9.0th/mm3 (3.8-10.1) Red Blood Count 4.28mil/mm3 (3.90-5.20) Hemoglobin 12.0g/dL (12.0-15.6) Hematocrit 37.9% (35.0-46.0) Mean Corpuscular Volume 88.6fL (81-100) Mean Corpuscular Hemoglobin 28.0pg (27.0-35.0) Mean Corpuscular Hemoglobin Concent 31.7% (32.0-37.0) Red Cell Distribution Width 15.8% (12.3-15.4) Platelet Count 331bil/L (150-400) Neutrophils (%) (Auto) 58.7% (40-74) Lymphocytes (%) (Auto) 17.9% (14-46) Monocytes (%) (Auto) 13.6% (4-12) Eosinophils (%) (Auto) 9.2% (0-5) Basophils (%) (Auto) 0.4% (0-3) Sodium Level 146mEq/L (134-144) Potassium Level 3.9mEq/L (3.5-5.2) Chloride Level 107mEq/L (97-108) Carbon Dioxide Level 22mmol/L (18-29) Blood Urea Nitrogen 20mg/dL (8-27) Creatinine 1.47mg/dL (0.57-1.00) Estimat Glomerular Filtration Rate 49mL/min (>59) Glucose Level 106mg/dL (60-99) Calcium Level 9.5mg/dL (8.5-10.1) Total Bilirubin 0.3mg/dL (0.0-1.2) Aspartate Amino Transf (AST/SGOT) 14U/L (0-50) Alanine Aminotransferase (ALT/SGPT) 10U/L (0-32) Alkaline Phosphatase 95U/L (25-165) Total Protein 5.2g/dL (6.4-8.4) Albumin 3.3g/dL (3.4-5.0) Prealbumin 16mg/dL (20-40) Prothrombin Time 27.9sec (8.1-12.5) Prothromb Time International Ratio 2.56ratio Discharge Medications Discharge Medications Ascorbate Calcium (Vitamin C) 500 Mg Tablet 500 MG PO DAILY (Reported) Calcium Carbonate (Tums) 500 Mg Tab.chew 1,000 MG PO TID (Reported) Cholecalciferol (Vitamin D3) (Vitamin D3) 2,000 Unit Capsule 2,000 UNIT PO DAILY (Reported) Cranberry (Cranberry) 400 Mg Capsule 400 MG PO BID (Reported) For UTI prpphylaxis Furosemide (Lasix) 20 Mg Tablet 20 MG PO DAILY Prescribed by: JAIMIE MCMULLEN DO Loratadine (Loratadine) 10 Mg Capsule 10 MG PO DAILY (Reported) Losartan Potassium (Losartan Potassium) 50 Mg Tablet 50 MG PO BID (Reported) Metoprolol Tartrate (Metoprolol Tartrate) 50 Mg Tablet 50 MG PO BID (Reported) Multivitamin (Multivitamins) 1 Each Capsule 1 EACH PO DAILY (Reported) Polyethylene Glycol 3350 (Miralax) 17 Gm Powd.pack 17 GM PO DAILY (Reported) Potassium Chloride (Potassium Chloride) 10 Meq Capsule.er 20 MEQ PO DAILY TAKE WITH FOOD Prescribed by: JAIMIE MCMULLEN DO Trazodone (Trazodone) 50 Mg Tablet 50 MG PO HS (Reported) Warfarin Sodium (Warfarin Sodium) 2.5 Mg Tablet 2.5 MG PO S, T, W, F (Reported) Warfarin Sodium (Coumadin) 3 Mg Tablet 3 MG PO M, Th, S (Reported) As needed Acetaminophen (Acetaminophen) 325 Mg Tablet 650 MG PO Q4 PRN PRN For Pain ( Reported) If no relief from Bisacodyl tablet. Albuterol Neb Soln (Albuterol Neb Soln) 2.5 Mg/3 Ml Vial.neb 2.5 MG IH Q4-6H PRN PRN For Wheezing (Reported) Alprazolam (Alprazolam) 0.25 Mg Tablet 0.25 MG PO TID PRN PRN For Anxiety ( Reported) Bisacodyl (Dulcolax) 5 Mg Tablet.dr 10 MG PO DAILY PRN PRN For Constipation ( Reported) Bisacodyl (Dulcolax Rectal) 10 Mg Supp.rect 10 MG RC DAILY PRN PRN For Constipation (Reported) Cod Liver Oil/Zinc Oxide (Desitin Diaper Rash 40% Paste) 28 Gm Paste..g. 1 APPLIC TOP PRN PRN PRN For Itching (Reported) Use each time with diaper change Docusate Sodium (Docusate Sodium) 250 Mg Capsule 250 MG PO DAILY PRN PRN For Constipation (Reported) Mag Hydrox/Al Hydrox/Simeth (Mag-Al Liquid) 30 Ml Susp 30 ML PO QID PRN PRN For Dyspepsia or Heartburn (Reported) Na Phos,M-B/Na Phos,Di-Ba (Fleet Enema) 133 Ml Enema 133 ML RC Q3 days PRN PRN For Constipation (Reported) diphenhydrAMINE HCl (Benadryl) 25 Mg Capsule 25 MG PO Q6 PRN PRN For Itching ( Reported) Followup Plan Disposition: Discharged to [facility] in hospice care Follow-up plan Further care to be provided on return to [facility] by hospice providers. Discharge Diet: No restrictions Discharge Activity: No restrictions Time spent 45 minutes Florentino Wilson DO Feb 22, 2017 11:43
--- NOTE | 2017-02-22 11:47 | NUR ---
Faxed clinicals to [facility] per DIRECTOR OF CONSULTING SERVICES Addendum: 02/22/17 at 1431 by FLAKO GRANT Arranged BLS transport via [facility] for [phone], patient is returning to [facility]. Updated [facility]
--- NOTE | 2017-02-22 11:49 | PCM.DIMED ---
Discharge Instructions Date of Service Feb 22, 2017 Dates of Hospitalization Feb 19, 2017 at 20:44 Discharge Diagnosis Discharge Diagnosis Recurrent CVA Dementia, severe Diet Discharge Diet: No restrictions Activity Discharge Activity: No restrictions Patient Instructions Follow-up plan Further care to be provided on return to [facility] by hospice providers. Follow-up with PCP in: 2 weeks Florentino Wilson DO Feb 22, 2017 11:49
[2017-02-22] MEDS ORDERED: POTA20TA16 PO (14:05)
[2017-02-22] MEDS ORDERED: WARF3TAB7 PO (14:05)
[2017-02-22] MEDS ORDERED: WARF2.5T82 PO (14:05)
[2017-02-22] MEDS ORDERED: FUR20 PO (14:05)
[2017-02-22] MEDS ORDERED: POTA20LI2 PO (14:05)
[2017-02-22] MEDS ORDERED: LOSA50TA37 PO (14:05)
--- NOTE | 2017-02-22 14:11 | PCM.PHAPRO ---
Progress Warfarin dosing Date Feb 20-Feb 21-Feb 22-Feb INR 1.92 1.81 1.74 2.56 INR change -0.11 -0.07 0.82 Warf Dose HOLD 3 3mg 2 Reinaldo Rosen Pharm.D Feb 22, 2017 14:11
--- NOTE | 2017-02-22 14:54 | NUR ---
Discharge Patient given discharge orders. Patient given medication list with written times of last dose taken. Patient IV removed fully intact and asymptomatic. Patient family was informed of discharge instructions and follow up. Patient awaiting S for transportation to [facility]. Addendum: 02/22/17 at 1532 by SONJA MANN RN Report called to Iveth nurse at [facility].
--- NOTE | 2017-02-22 17:06 | NUR ---
Social Work Note: Received verbal referral from that pt. medically cleared to return to [facility] today. Placed call to Margi Raúl at [facility] and she reports that they can accept back but that she will come in person to evaluate around lunchtime. Met with pt., and spouse at bedside. Spouse aware and agreeable for pt. to return to [facility] and understands that hospice scheduled to see pt. at [facility] on 02-26. Placed call to [facility] to confirm plan and they do have pt. scheduled for visit on Monday. Asked [facility] to arrange BLS transport secondary to pt. being unable to sit up in wheelchair to return home. Spouse aware that if Medicare does not cover cost of ambulance he will get bill. He is aware and agreeable. P: [facility] today via BLS. TASHA Raphael
== END 2017-02-22 17:01 ==
LOC: EDUNIT# 17:22 → SED 17:22 → EDBD 17:22 → MPC 20:44 → INTOOBSV 20:44 → MPC 21:30
PROVIDERS: ADMIT Hospitalist; ATTEND Family Medicine
DX: I62.9 Nontraumatic intracranial hemorrhage, unspecified (principal); R53.1 Weakness; I48.0 Paroxysmal atrial fibrillation; I10 Essential (primary) hypertension; E78.5 Hyperlipidemia, unspecified; N17.9 Acute kidney failure, unspecified; G31.9 Degenerative disease of nervous system, unspecified; F03.90 Unspecified dementia, unspecified severity, without behavioral disturbance, psychotic disturbance, mood disturbance, and anxiety; Z86.711 Personal history of pulmonary embolism; Z85.72 Personal history of non-Hodgkin lymphomas; Z79.01 Long term (current) use of anticoagulants; Z79.899 Other long term (current) drug therapy; Z88.0 Allergy status to penicillin; Z88.2 Allergy status to sulfonamides; Z88.8 Allergy status to other drugs, medicaments and biological substances
CPT/HCPCS: 36415; 70450; 70496; 70498; 80048; 80053; 80061; 82040; 82948; 83036; 83735; 84134; 84484; 85025; 85610; 85730; 92526; 92610; 93005; 96374; 99291; 99292; C8929; G0378; G8996; G8997; J0696; J7030; J7050; Q9967